=== PATIENT | male | born 1975 | race Caucasian/White ===

== ENCOUNTER 2020-09-28 22:14 | Emergency (ER) | payer MEDICARE ==
[~2020-09-28] VITALS: Ht 182.9 cm; Wt 98.9 kg
[2020-09-28] MEDS ORDERED: NEOMY/BACITRA/POLYMYXIN B OINT UD PACKET TP ONE ×2 (22:45→22:53)
--- NOTE | 2020-09-28 22:56 | NUR ---
Patient discharged to home in stable condition. Written and verbal after care instructions given. Patient verbalizes understanding of instructions. Stressed follow up or return to ER for worsening s/s. All belongings with patients. ADVISED PATIENT TO NOT TRY AND REMOVE FOREIGN OBJECT ON HIS OWN - PATIENT VERBALIZED UNDERSTANDING. VSS. Stable condition. TOLD TO WAIT FOR [facility]
[2020-09-28 22:58] VITALS: BP 144/87
== END 2020-09-28 22:58 | disposition home or self-care (01) ==
LOC: ER 22:24
DX: L98.9 Disorder of the skin and subcutaneous tissue, unspecified (principal); R03.0 Elevated blood-pressure reading, without diagnosis of hypertension
CPT/HCPCS: A4663